=== PATIENT | female | born 2000 | race African-American/Black ===

== ENCOUNTER 2018-12-23 18:26 | Emergency (ER) | payer MEDICAID ==
[2018-12-23 18:56] LABS: #Basophils 0.1 thou/uL (0.0-0.2); #Eosinphils 0.5 thou/uL (0.0-0.7); #Lymphocytes 2.4 thou/uL (1.20-3.40); #Monocytes 0.5 thou/uL (0.11-0.59); #Neutrophils 3.8 thou/uL (1.40-6.50); %Basophils 0.9 % (0.0-1.0); %Eosinophils 7.2 % (0.0-10.0); %Lymphocytes 32.8 % (28.0-48.0); %Monocytes 7.1 % (0.0-4.0); %Neutrophils 51.9 % (31.0-61.0); Hemoglobin 13.7 g/dL (12.0-16.0); Mean Corpuscular HGB CONC 33.9 g/dL (32.0-36.0); Mean Corpuscular Hemoglobin 30.9 pg (25.0-35.0); Mean Corpuscular Volume 91.3 fL (78.0-98.0); Mean Platelet Volume 8.3 fL (7.4-10.4); Platelet Count 267 thou/uL (130-400); RBC Distribution Width 11.9 % (11.5-14.5); Red Blood Cell (RBC) Count 4.43 mill/uL (4.00-5.20); White Blood Cell (WBC) Count 7.3 thou/uL (4.8-10.8)
[2018-12-23 19:07] LABS: Bilirubin Negative (Negative); Blood, Urine Negative (Negative); Clarity Clear (Clear); Glucose, Urine (Dipstick) Negative (Negative); Leukocyte Large (Negative); Nitrite Negative (Negative); Protein, Urine (Dipstick) Negative (Neg-Trace)
[2018-12-23 19:14] LABS: RBC/HPF None Seen HPF (0-3); WBC/HPF 21-50 HPF (0-3)
[2018-12-23 19:16] LABS: Bacteria/HPF 1+ HPF (None Seen); Hyaline Casts/LPF 0-3 HYALINE CAST LPF (0-3 Hyaline)
--- NOTE | 2018-12-23 21:23 | ULT ---
Pelvic sonogram transabdominal and transvaginal imaging with duplex evaluation HISTORY: Pelvic pain and bleeding. Early . FINDINGS: Urinary bladder is decompressed. Uterus is retroverted with a heterogeneous echotexture. It measures up to 8.4 cm. Small gestational sac in the endometrial cavity shows a yolk sac. No pole visible. Measurements correlate with 5 weeks 2 days gestational age. No free fluid within the pelvis. Right ovary is 4.1 cm in the left is 3.6 cm. Each demonstrates good color and spectral Doppler flow. IMPRESSION: Very early intrauterine gestational sac. Measurements correlate with 5 weeks 2 days gesta tional age. No pole is yet visible.
[2018-12-24 18:33] LABS: Chlamydia by PCR DETECTED (NotDetected); GC by PCR Not Detected (NotDetected)
== END 2018-12-23 22:08 | disposition home or self-care (01) ==
LOC: ERS 18:26
DX: O23.41 Unspecified infection of urinary tract in pregnancy, first trimester (principal); O23.591 Infection of other part of genital tract in pregnancy, first trimester; Z3A.01 Less than 8 weeks gestation of pregnancy
CPT/HCPCS: 36415; 76856; 81003; 81015; 84702; 85025; 86900; 86901; 87480; 87491; 87510; 87591; 87660